=== PATIENT | male | born 1980 | race Caucasian/White ===

== ENCOUNTER 2020-09-20 09:05 | Emergency (ER) | payer SELFPAY ==
[2020-09-20 09:05] VITALS: BP 176/106; PULSE 68; RESP 18; TEMP 35.7; O2SAT 98; BMI 40.6
--- NOTE | 2020-09-20 09:15 | CT_ITS ---
STUDY: CT ABDOMEN AND PELVIS WITHOUT CONTRAST REASON FOR EXAM: Male, 40 years old. Right flank pain. History of kidney stones. RADIATION DOSAGE (If Supplied By Facility): CTDIvol = ( 22.70 ) mGy, DLP = ( 1282.83 ) mGycm TECHNIQUE: Transaxial images were obtained from the dome of the diaphragm to the symphysis pubis without oral contrast, and without intravenous contrast. Sagittal and coronal images were reconstructed. Individualized dose optimization techniques were used for this CT. COMPARISON: None. FINDINGS: The visualized lung bases are unremarkable. Minimal coronary artery calcification. Normal liver. Normal gallbladder and extrahepatic biliary system. Normal spleen. Normal pancreas. Normal bilateral adrenal glands. There is enlargement and engorgement of the right kidney with the right perinephric stranding. Mild degree of the right hydronephrosis and right hydroureter due to a 4.5 mm calculus in the distal portion of the right ureter just proximal to the ureterovesical junction. 3 mm nonobstructive calculus in the upper pole calyx of the right kidney. Normal left kidney. There is a small hiatal hernia. Normal small intestine. Normal colon. The appendix is visualized and appears normal. Normal abdominal aorta. Normal inferior vena cava. Normal retroperitoneum. Normal urinary bladder. Normal abdominal wall. There are minimal degenerative changes of the visualized lumbar spine. CT/Abdomen/Pelvis without Cont IMPRESSION: 4.5 mm calculus in the distal portion of the right ureter just proximal to the ureterovesical junction causing right hydronephrosis and right hydroureter. 3 mm nonobstructive calculus in the upper pole. Some of the right kidney. Electronically Signed: Marvin Hayes MD at 10:59 EDT , Service support ,
--- NOTE | 2020-09-20 09:15 | EX.ED.DYSGE1 ---
HPI History of Present Illness Chief Complaint: Abd Pain Informant: patient Onset/Context/Timing Onset: Weeks Context: Sudden Onset Timing: Intermittent Quality: Sharp intense Location: Right groin region and back Current Severity: Moderate Maximum Severity: Severe Worsened by: Nothing Relieved by: Nothing Associated Symptoms Associated Symptoms: Nausea, subjective fever and chills Narrative Narrative: Patient is a 40-year-old male who presents with intermittent right lower back and right lower abdominal pain for the past 2 weeks. He has a remote history of kidney stone. He denies dysuria, frequency, urgency or hematuria. He complains of subjective fever with chills. He has not taken his temperature. He denies testicular pain. He denies anorexia. He denies headache, visual, ocular auditory symptoms. He denies cardiac respiratory symptoms. There is no history of trauma. He denies rash. He has no other complaints. Prior similar symptoms: Yes (Kidney stone) Recent Illness/Hospitalization: No PFSH PFSH Medical History (Updated 09/20/20 @ 13:[address] Julius Clinton MD) Kidney stone Home Medications naproxen 500 mg PO BID #14 tab 09/20/20 [Rx Last Taken Unknown] ondansetron 4 mg PO Q8H PRN PRN #10 tab 09/20/20 [Rx Last Taken Unknown] oxycodone-acetaminophen 1 tab PO Q6H PRN PRN 5 Days #20 tablet 09/20/20 [Rx Last Taken Unknown] Allergy/AdvReac Type Severity Reaction Status Date / Time No Known Allergies Allergy Verified 09/20/20 09:07 no surgical history Social History (Updated 09/20/20 @ 09:[address] Julius Clinton MD) household members: family Smoking Status: Current every day smoker tobacco type: cigarettes alcohol intake: current alcohol intake frequency: other substance use type: marijuana ROS ROS ED Constitutional Constitutional ED: Reports chills, fever(s) and subjective; Denies sweats or weight loss Eyes Eyes: Denies blurry vision, change in vision or diplopia ENT ENT ED: Denies ear pain, rhinorrhea or sore throat Cardiovascular Cardiovascular: Denies chest pain or palpitations Respiratory/Chest Respiratory/Chest: Denies cough, dyspnea or dyspnea on exertion Gastrointestinal Gastrointestinal: Reports abdominal pain and nausea; Denies constipation, diarrhea, melena or vomiting Genitourinary Genitourinary ED: Denies dysuria, hematuria or urinary frequency Musculoskeletal Musculoskeletal: Reports back pain; Denies arthralgias, myalgias or neck pain Integumentary Denies abscess, Abrasions or rash Neurologic Neurologic: Denies headache(s) or weakness EXAM Physical Exam Const Vital Signs: 09/20/20 09:05 09/20/20 12:03 Temperature 96.2 F L Temperature Source Temporal Pulse Rate 68 63 Respiratory Rate 18 Blood Pressure 176/106 H 155/70 H Blood Pressure Mean 129 98 Pulse Ox 98 99 Oxygen Delivery Method Room Air Room Air Positive well nourished, well developed and obese General Appearance ED: well developed and other Patient appears uncomfortable. Nutritional Appearance: obese HEENT Reports moist mucous membranes HEENT Narrative: There is no asymmetry. There is no evidence of trauma. Eyes PERRL and EOMs intact bilaterally General Eye ED: Negative for pale conjunctiva or scleral icterus Neck no lymphadenopathy, supple and no JVD Chest Wall inspection of chest normal Resp normal respiratory effort and clear to auscultation bilaterally Cardio regular rate, regular rhythm, S1 normal heart sound, S2 normal heart sound and no murmurs GI normal to inspection, nondistended, normoactive bowel sounds and non-tender Palpation: soft Back/Spine no CVA tenderness Thoracic Spine / Upper Back: Negative for thoracic spinal tenderness or paraspinal muscle tenderness Lumbar Spine / Lower Back: Negative for lumbar spinal tenderness Extremity normal to inspection General Extremety ED: Negative for edema or tenderness General Extremity: Negative for edema Neuro oriented x3, CN's II-XII intact bilaterally and no sensory deficits noted Sensorium / Orientation: alert Skin no rashes or lesions noted and no wounds MDM MDM MDM Narrative Medical decision making narrative: Patient presents with symptoms suggestive of ureterolithiasis. Since he complains of fever and chills will obtain UA and CBC. BMP was obtained to assess for renal function. CAT scan was ordered of the pelvis and abdomen without contrast. He was medicated with Zofran for his nausea and IV Toradol and morphine for his pain. Differential would include obstructing ureteral stone, atypical presentation for appendicitis, inflammatory bowel disorder. Patient had no pain after initial dose of Toradol and morphine. After he returned from the radiology suite he developed severe pain. He was given morphine. He states the pain medicine did not work as quickly. He states his pain is under control. He was referred to urology. Was discharged with prescription for Zofran, NSAID and opiate analgesia. Lab Data Labs: Laboratory Results - last 24 hr 09/20/20 09/20/20 09/20/20 09:40 09:40 09:54 WBC 8.2 RBC 4.98 Hgb 15.3 Hct 45.1 MCV 90.6 MCH 30.7 MCHC 33.9 RDW Std Deviation 42.3 RDW Coeff of Casandra 12.8 Plt Count 223 MPV 10.3 Immature Gran % (Auto) 0.200 Neut % (Auto) 79.3 H Lymph % (Auto) 14.3 L [place] % (Auto) 5.6 Eos % (Auto) 0.4 Baso % (Auto) 0.2 Absolute Neuts (auto) 6.5 Absolute Lymphs (auto) 1.17 Nucleated RBC % 0 Sodium 140 Potassium 4.0 Chloride 107 Carbon Dioxide 25.0 Anion Gap 8 BUN 10 Creatinine 1.28 Estim Creat Clear Calc 78.42 Est GFR (MDRD) Af Amer 80 Est GFR (MDRD) Non-Af 66 BUN/Creatinine Ratio 7.8 L Glucose 129 H Calcium 8.6 Urine Color Yellow Urine Clarity Sl. Cloudy Urine pH 5.0 Ur Specific [place] 1.020 Urine Protein Negative Urine Glucose (UA) Normal Urine Ketones Negative Urine Occult Blood 250 H Urine Nitrite Negative Urine Bilirubin Negative Urine Urobilinogen Normal Ur Leukocyte Esterase Negative Urine RBC 5-10 SEEN Urine WBC 0 SEEN Ur Squamous Epith Cells 0-5 SEEN Urine Bacteria RARE Urine Mucus 0 SEEN Radiography Chest X-Ray - ED: - (The unenhanced scan of the abdomen pelvis was reviewed by me at 1032. There is evidence of hydroureter and nephrosis with a distal obstructing stone. There is also a stone noted in the pelvis of the right kidney. Awaiting formal read by radiologist. White count is normal. Electrolyte panel is u) Diagnostic Testing: Radiology Impression Abdomen/Pelvis CT 09/20/20 09:15 IMPRESSION: 4.5 mm calculus in the distal portion of the right ureter just proximal to the ureterovesical junction causing right hydronephrosis and right hydroureter. 3 mm nonobstructive calculus in the upper pole. Some of the right kidney. Electronically Signed: Marvin Hayes MD at 10:59 EDT , Service support , Discharge Plan Triage Chief Complaint: Abd Pain ED Provider: Julius Clinton Dx/Rx/DC Orders Clinical Impression: Hydronephrosis with urinary obstruction due to ureteral calculus, Kidney stone on right side Instructions: ED Kidney Stone w/ Colic Prescriptions: New oxycodone-acetaminophen [oxycodone-acetaminophen] 1 TABLET tablet 1 tab PO Q6H PRN PRN (Reason: pain) 5 Days Qty: 20 RF: 0 ondansetron [ondansetron] 4 MG tablet 4 mg PO Q8H PRN PRN (Reason: Nausea) Qty: 10 RF: 0 naproxen 500 MG tablet 500 mg PO BID Qty: 14 RF: 0 Primary Care Provider: Care Physician,No Primary Referrals: Alan Floyd MD [STAFF PHYSICIAN] - 5-7 Days Care Physician,No Primary [Primary Care Provider] - Disposition Disposition: Home, self care
[2020-09-20] MEDS: 0.9% Normal Saline 1,000 ML 250 ML IV (09:39)
[2020-09-20] MEDS: Ondansetron 4 MG/2 ML Vial IV (09:40)
[2020-09-20] MEDS: Morphine 4 MG/ML Syringe IV (09:40)
[2020-09-20] MEDS: Ketorolac 15 MG/ML Vial IV (09:40)
[2020-09-20 09:49] LABS: Absolute Lymphocyte Count 1.17 X10^3/uL (0.83-4.51); Absolute Neutrophil Count 6.5 X10^3/uL (2.0-7.7); Basophil# 0.02 X10^3/uL; Basophil% 0.2 % (0-1); Eosinophil# 0.03 X10^3/uL; Eosinophils% 0.4 % (0-5); Hematocrit 45.1 % (40-54); Hemoglobin 15.3 g/dL (13.0-16.5); Lymphocyte # 1.17 X10^3/ul (0.83-4.51); Lymphocyte % 14.3 % (19-41); Mean Corp Hgb Conc 33.9 g/dL (32-36); Mean Corpuscular Hgb 30.7 pg (27.0-32.0); Mean Corpuscular Volume 90.6 fL (80-94); Mean Platelet Vol. 10.3 fl (6.2-12.0); Monocyte# 0.46 X10^3/uL; Monocyte% 5.6 % (0-10); NRBC Flagged by Analyzer 0 % (0-5); Neutrophil # 6.49 X10^3/uL (2.7-7.7); Neutrophil % 79.3 % (47-70); Platelet Count 223 K/mm3 (150-450); RBC Distribution Width CV 12.8 % (11.6-14.6); RBC Distribution Width SD 42.3 fl (35.1-43.9); Red Blood Count 4.98 M/mm3 (4.6-6.2); White Blood Count 8.2 K/mm3 (4.4-11.0)
[2020-09-20 09:59] LABS: Mucous, Urine 0 SEEN /hpf (<or=2+); White Blood Cells 0 SEEN /hpf (0-5)
[2020-09-20 10:00] LABS: Color, Urine Yellow (Yellow); Glucose, Dipstick Normal (Normal); Ketone-Dipstick Negative (Negative); Leukocyte Esterase-Dipstick Negative /ul (Negative); Nitrite-Dipstick Negative (Negative); Occult Blood-Urine 250 /ul (Negative); Protein-Dipstick Negative (Negative); Urine Bilirubin Dipstick Negative (Negative); Urine Clarity Sl. Cloudy (Clear); Urine Urobilinogen Normal (Normal)
[2020-09-20 10:00] LABS: Anion Gap 8 (5-15); BUN 10 mg/dL (7-18); BUN/Creat Ratio 7.8 RATIO (10-20); Calcium,Total 8.6 mg/dL (8.5-10.1); Chloride 107 mmol/L (98-107); Creatinine, Serum 1.28 mg/dL (0.70-1.30); EST Glomerular Filtration Rate 66 mL/min (>60); Est Glom Filt Rate - Afr Amer 80 mL/min (>60); Estimated Creatinine Clearance 78.42 ml/min; Glucose 129 mg/dL (74-106); Sodium Level 140 mmol/L (136-145)
[2020-09-20 10:19] LABS: Bacteria RARE /hpf (None Seen); Red Blood Cells-Urine 5-10 SEEN /hpf (0-5); Squamous Epithelial Cells - UA 0-5 SEEN /hpf (0-5)
[2020-09-20] MEDS: morphine 8 MG/ML Syringe 6 MG IV (11:37)
[2020-09-20 12:03] VITALS: BP 155/70; PULSE 63; O2SAT 99
[2020-09-20 13:25] VITALS: BP 137/76; PULSE 68; RESP 15; O2SAT 97
== END 2020-09-20 13:27 | disposition home or self-care (01) ==
PROVIDERS: Emergency Provider Emergency Medicine
DX: N13.2 Hydronephrosis with renal and ureteral calculous obstruction (principal); Z87.442 Personal history of urinary calculi; F17.210 Nicotine dependence, cigarettes, uncomplicated
CPT/HCPCS: 74176; 80048; 81001; 85025; 96361; 96374; 96375; 96376; 99283; J7030; A4216; J2405